=== PATIENT | female | born 1990 | race Caucasian/White ===

== ENCOUNTER 2017-04-29 21:37 | Inpatient (IN) | payer OTHER ==
[~2017-04-29] VITALS: Ht 157.5 cm; Wt 96.2 kg
[~2017-04-29 21:37] MED LIST: Ginko Biloba; Tylenol; prenatal vitamins
--- NOTE | 2017-04-29 23:40 | HP ---
[address] [address] HISTORY AND PHYSICAL PATIENT: AMIE REBOLLEDO : 1990 MR#: [id number] ADMIT: 04/29/2017 JOB ID: [id number] CHIEF COMPLAINT: Contractions and decreased movement. HISTORY OF PRESENTING ILLNESS: This is a 26 years old 5, para , presented at 39 weeks and 0 days gestation with expected date of delivery of May 06, 2017, by last menstrual period, consistent with 18 week ultrasound. The patient presented with complaint of decreased movement and contractions. Contractions are getting stronger and with increasing pelvic pressure. Cervical exam found to be 4 cm and 90% effaced. Last cervical exam was 3-5 cm and 40% effaced a few days ago. complicated with one previous history of section. Desires trial of labor after section. The patient was counseled and consented by Dr. Gibbons at the office on April 17, 2017. Consent paper is not available at this time. History of mild intermittent asthma, using inhaler p.r.n. History of an anemia. Rh negative. RhoGAM was given on January 20, 2017. Obesity. Fundal height more than dates. Estimated weight by ultrasound on April 18, 2017, is 3160 g, at 43rd percentile. GYNECOLOGIC HISTORY: Menarche at age 11. Regular menstrual cycles every 28 days. Last menstrual period July 30, 2017. Was not on control at time of conception. OBSTETRICAL HISTORY: In had a spontaneous at 6 weeks gestation, was a complete with no medical or surgical intervention. In 2009, had a term delivery at 39 weeks and 0 days. Delivered a female infant, 7 pounds 15 ounces, via spontaneous vaginal delivery under epidural anesthesia. Length of labor 18 hours. In 2011, had a spontaneous at 8 weeks and 0 days. Was a spontaneous complete with no medical or surgical intervention. In 2012, had a term delivery at 40 weeks and 6 days via a primary section for failure to progress and nonreassuring heart rate. PAST MEDICAL HISTORY: Asthma anemia. Bipolar 1. PAST SURGICAL HISTORY: Previous one section, tonsillectomy, ear surgery. MEDICATIONS: vitamins. SOCIAL HISTORY: Denies smoking, alcohol, or illicit drug abuse. FAMILY HISTORY: Father alive and well. Mother alive and well. Son with autism. Maternal grandmother with hypertension. REVIEW OF SYSTEMS: A 10-point review of systems negative except for the items in the history of presenting illness. PHYSICAL EXAMINATION: Vital signs: Blood pressure 135/70, heart rate 96, respiratory rate 18, temperature 36.4. heart tones baseline 135, moderate variability, positive accelerations, no decelerations. Pabellones contractions every 5 minutes. General: Alert, oriented to time, place and person. Head: Normocephalic, atraumatic. Neck: Supple. Chest: Equal air entry bilaterally. No added sounds. Cardiovascular: Regular rate and rhythm. S1 plus S2. Abdomen: Gravid. No tenderness. Cervical exam: Cervix is 4 cm, 80%, -3 at 22:00. LABORATORIES: Blood type is A negative. Rubella immune. Varicella immune. RPR nonreactive. Hepatitis B surface antigen negative. HIV negative. Antibody screening negative December 02, 2016. Chlamydia and gonorrhea screening is negative on December 24, 2016. Hemoglobin 11.9 on December 02, 2016. Diabetes screening within normal limits, 106. Group B strep negative on April 14, 2017. Ultrasound on December 11, 2016, normal anatomy and posterior placenta. ASSESSMENT: This is a 5, para 2-0-2-2, presented at 39 weeks and 0 days gestation with active labor and decreased movement. heart tones at category 1. Previous history of one section preceded by spontaneous vaginal delivery. Desires trial of labor after section. The patient was counseled and consented earlier at the office on April 17, 2017. Today, patient was counseled again about risks, benefits and alternatives of repeat section versus trial of labor after section. The calculated success rate is 66%. Risk of uterine rupture was reviewed with the patient. Risk of section after failed trial of labor after section was also reviewed with the patient. The patient desires trial of labor after section. Informed consent was signed again today. Will admit with orders and labs. The patient may be considering epidural for pain management in labor.
[2017-04-29] MEDS ORDERED: Lactated Ringer's 1,000 ML IV PRN (23:44)
[2017-04-29] MEDS ORDERED: fentaNYL-PF 50 mCg/mL 2 mL Inj IVPUSH PRN (23:45)
[2017-04-29] MEDS ORDERED: Sodium Chloride LOK Flush 10 mL Syringe IVFLUSH PRN (23:45)
[2017-04-29] MEDS ORDERED: Carboprost 250 mCg/mL Inj IM PRN (23:45)
[2017-04-29] MEDS ORDERED: Hemorrhage Kit, Post Partum XX ONE (23:45)
[2017-04-29] MEDS ORDERED: Oxytocin 10 Unit/mL Inj IM PRN (23:45)
[2017-04-29] MEDS ORDERED: Methylergonovine 0.2 mg/mL Inj IM PRN (23:45)
[2017-04-29] MEDS ORDERED: Oxytocin 30 Units/500 mL LR 30 UNITS in IV Premix 1 EACH IV PRN (23:45)
[2017-04-30] MEDS ORDERED: SERT20OR6 PO (00:01)
[2017-04-30] MEDS ORDERED: LORA10CA9 PO (00:01)
[2017-04-30] MEDS ORDERED: ONDA-54 PO (00:01)
[2017-04-30 00:04] LABS: Mean Corpuscular Hemoglobin 31.3 pg (27.0-35.0); Mean Corpuscular Volume 90.9 fL (81-100)
[2017-04-30] MEDS: Ondansetron 2 mg/mL 2 mL Inj IVPUSH PRN ×2 (02:14→13:49)
--- NOTE | 2017-04-30 07:27 | PCM.PNOBIP ---
Subjective Date of Service Apr 30, 2017 Delivery plan: Vaginal Delivery after Ceserean Visit History This is a 26 years old 5, para 2021, presented at 39 weeks and 0 days gestation with expected date of delivery of May 06, 2017, by last menstrual period, consistent with 18 week ultrasound. The patient presented with complaint of decreased movement and contractions. Contractions are getting stronger and with increasing pelvic pressure. Cervical exam found to be 4 cm and 90% effaced. The patient was counseled and consented by Dr. Gibbons at the office on April 17, 2017. Subjective The patient is resting comfortably at this time. She states she has nausea but has not vomited. She has not eaten in 13 hours but she would like to eat. She having contractions every 7-8 minutes. She has not felt any drainage or leakage at this time. Pain Management: PO pain meds Gastrointestinal: Complains of Nausea Activity: Ambulating Independently Group B Strep Results: Negative Rubella: Immune Blood Type: A RH Type: Negative Labs Laboratory Tests 04/29/17 23:58: White Blood Count 9.3, Red Blood Count 3.83, Hemoglobin 12.0, Hematocrit 34.8, Mean Corpuscular Volume 90.9, Mean Corpuscular Hemoglobin 31.3, Mean Corpuscular Hemoglobin Concent 34.5, Red Cell Distribution Width 13.0, Platelet Count 210 Exam Vital Signs Vital Signs Contraction frequency in minutes: 7-8 Maternal BP 110/80 Pulse 82 RR 18 temp 37.2 Heart rate baseline 140 Moderate variability single deceleration captured Cat II Heart Tracings Heart Tones Baseline 140 bpm Heart Rate Variability: Moderate Heart Rate Accelleration: Present Heart Rate Deceleration: Other (single deceleration captured) Heart Rate Category: II Tocometry/IUPC Contraction frequency in minutes: MVUs: Sterile Vaginal Exam Cervical Dilation: 5 cms Cervical Effacement: 80 % Station: -3 Exam Abdomen: Fundus firm, Abdomen soft, Abdomen non-tender Extremities: No cords, Edema 1+ Heart: Exam Unremarkable, Regular Rate/Rhythm General: Alert, Oriented X3, Cooperative, No Acute Distress Additional Information No clonus DTR 2/4 OB Intrapartum Assessment/Plan Assessment TOLAC Problems: (1) Previous delivery affecting Status: Acute ICD Code: O34.219 (2) Active labor at term Plan: - Continue intrapartum care - FHT overall reassuring at this time. Continue to monitor. - Zofran 4 mg for nausea PRN Status: Acute Intrapartum plan: Continue expected management Pain Evaluation: Adequate Pain Control Attending Statement The patient was seen and examined together with Dr. Chadd Mike on 04/30/2017 and I agree with the history, exam and plan as outlined in the note above. Shanae Mike DO Apr 30, 2017 07:27 Miriam Guzman MD Apr 30, 2017 17:03
[2017-04-30] MEDS ORDERED: Lactated Ringer's 1,000 ML IV SCH ×3 (12:21→16:53)
--- NOTE | 2017-04-30 12:21 | PCM.PNOBIP ---
Subjective Date of Service Apr 30, 2017 Delivery plan: Vaginal Delivery after Ceserean Visit History This is a 26 years old 5, para 2021, presented at 39 weeks and 0 days gestation with expected date of delivery of May 06, 2017, by last menstrual period, consistent with 18 week ultrasound. The patient presented with complaint of decreased movement and contractions. Cervical exam found to be 4 cm and 90% effaced. Subjective Patient resting comfortably in bed. She reports contractions are stronger. No leakage of fluid. Pain Management: PO pain meds Gastrointestinal: Complains of Nausea Activity: Ambulating Independently Group B Strep Results: Negative Rubella: Immune Blood Type: A RH Type: Negative Labs Laboratory Tests 04/29/17 23:58: White Blood Count 9.3, Red Blood Count 3.83, Hemoglobin 12.0, Hematocrit 34.8, Mean Corpuscular Volume 90.9, Mean Corpuscular Hemoglobin 31.3, Mean Corpuscular Hemoglobin Concent 34.5, Red Cell Distribution Width 13.0, Platelet Count 210 Exam Vital Signs Vital Signs Contraction frequency in minutes: every 10 to 12 minutes apart Vital Signs: VS reviewed, stable (119/78 P 97) Heart Tracings Heart Tones Baseline 130 bpm Heart Rate Variability: Moderate Heart Rate Accelleration: Present Heart Rate Category: I Sterile Vaginal Exam Cervical Dilation: 5 cms Cervical Effacement: 50 % Station: -3 Exam General: Alert, Oriented X3, Cooperative, No Acute Distress OB Intrapartum Assessment/Plan Problems: (1) Previous delivery affecting Plan: Trial of labor Status: Acute ICD Code: O34.219 (2) Active labor at term Plan: Discussed with patient option of AROM and placement of IUPC to help monitor progress and actively manage labor. She declined AROM. Plan to start pitocin augmentation at this time. Continue to monitor. Status: Acute Intrapartum plan: Continue expected management, Start pitocin Pain Evaluation: Adequate Pain Control Miriam Guzman MD Apr 30, 2017 12:21
[2017-04-30] MEDS ORDERED: Oxytocin 30 Units/500 mL LR 30 UNITS in IV Premix 1 EACH IV PRN ×2 (12:25→16:55)
[2017-04-30] MEDS ORDERED: diphenhydrAMINE 50 mg Capsule PO PRN (12:25)
[2017-04-30] MEDS ORDERED: Lactated Ringer's 500 ML IV ONE (14:19)
[2017-04-30] MEDS ORDERED: Atropine 1 mg/10 mL (Code) Syringe IVPUSH PRN (14:20)
[2017-04-30] MEDS ORDERED: EPHEDrine Sulfate 50 mg/mL Inj IVPUSH PRN (14:20)
[2017-04-30] MEDS ORDERED: Ondansetron 2 mg/mL 2 mL Inj IVPUSH PRN (14:20)
[2017-04-30] MEDS ORDERED: fentaNYL 2 mCg/mL-Bupiv 0.125% 100 ML EPIDURAL SCH (14:20)
--- NOTE | 2017-04-30 14:20 | PCM.HPANE ---
Patient Data Surgeon Admitting Provider:Latoya Vargas MD Attending Provider:Latoya Vargas MD Primary Care Physician:Harini Dias MD Other Provider: Reason for Visit Term Labor Check TERM LABOR CHECK Ht/WT & BMI Body Mass Index Allergies Coded Allergies: kiwi (Verified Allergy, Unknown, RASH,ANAPHYLAXIS, 11/04/12) latex (Verified Allergy, Unknown, hives, 04/30/17) Past Anesthesia History Anesthesia History: Denies:: Abnormal Airway, Difficult Intubation Diabetes History Hx Diabetes?: No MRSA MRSA: No Medications Hypertension Medication: No Home Meds Incl Beta Mariajose: No Reported Medications Loratadine 10 Mg [id number] Mg PO DAILY 04/30/17 Ondansetron 8 Mg Tablet8 Mg PO DAILY NAUSEA 04/30/17 Sertraline HCl (Sertraline)20 Mg/1 Ml Oral.conc25 Mg PO DAILY #1 BOTTLE Ref 0 04/30/17 [Tylenol] No Conflict Check Prn 11/04/12 [ vitamins] No Conflict Check Daily 11/04/12 Discontinued Reported Medications [Ginko Biloba] No Conflict Check Daily 11/04/12 History History of ENT Problems?: No HEENT History: Denies:: Abnormal Airway Cataracts Difficult Intubation Dysphagia Glaucoma Hearing Problem Sinus Problem TMJ Denture Type: None Teeth Condition: Within Normal Limits Hx of Heart Problems?: No Cardiovascular History: Denies:: AICD Abdominal Aortic Aneurism Atrial Fibrillation Cardiac Surgery Chest Pain Congestive Heart Failure Coronary Artery Disease Edema Heart Murmur Hypertension Irregular Heartbeat Pacemaker Peripheral Vascular Rheumatic Fever Thrombophlebitis Valvular Heart Disease Hx of Respiratory Problem?: No Respiratory History: Denies:: Asthma COPD Chest Surgery Cough Dyspnea Emphysema Hemoptysis Oxygen Administration Pneumonia Pulmonary Embolism Tuberculosis Use of C-PAP Machine Use of Inhalers / NEBS Hx Neurologic Problems?: No Neurological History: Denies:: Alzheimer's Disease CVA Dementia Dizziness Headaches Multiple Sclerosis Parkinson's Disease Peripheral Neuropathy Seizures TIA Hx of GI Problems?: No Hx of Problems?: No HX of Peritoneal Dialysis: No Female Hx: Positive for:: Currently Hx Musculoskeletal Problems?: No Hx Surgeries?: No Hx Any Other Health Problems?: No Hx Diabetes: No Hx Alcohol Use: NoHx Substance Use: No Smoking Status: Never Smoker Have You Smoked inLast 12 mo: No Stop/Bang Treated for Sleep Apnea?: No Do You Have a CPAP Machine?: No IGNACIO Risk Assessment: Low Risk, <3 Yes Risk Assessment Category Category 1A: Patient has history of documented sleep apnea, and HAS NOT received any narcotic, sedative or anesthesia administration during this stay. Category 1B: Patient has history of documented sleep apnea, and HAS received any narcotic , sedative or anesthesia administration during this stay Category 2: Patient has SUSPECTED Obstructive Sleep Apnea, and HAS received any narcotic , sedative or anesthesia administration during this stay. Category 3: Patient has SUSPECTED Obstructive Sleep Apnea and HAS NOT received narcotic, sedative or anesthesia administration during this stay. Category 4: Outpatient in Procedural Areas with known sleep apnea or who screen positive for High Risk via the STOP/BANG questionnaire. Exam Exam General Appearance: Alert, Oriented X3, Cooperative, No Acute Distress, Mild Distress HEENT/AIRWAY: MP 2 Lungs: Clear to Auscultation, Normal Air Movement Heart: Exam Unremarkable, Regular Rate/Rhythm, No Murmurs/Rubs/Gallops Meds/Labs/Diagnostics Labs Test 04/29/17 23:58 White Blood Count 9.3th/mm3 (3.8-10.1) Red Blood Count 3.83mil/mm3 (3.90-5.20) Hemoglobin 12.0g/dL (12.0-15.6) Hematocrit 34.8% (35.0-46.0) Mean Corpuscular Volume 90.9fL (81-100) Mean Corpuscular Hemoglobin 31.3pg (27.0-35.0) Mean Corpuscular Hemoglobin Concent 34.5% (32.0-37.0) Red Cell Distribution Width 13.0% (12.3-15.4) Platelet Count 210bil/L (150-400) Plan Impression Patient chart reviewed, patient interviewed and anesthestic plan with risks, benefits, and alternatives discussed, and informed consent obtained. NPO per Anesth. Guidelines: Yes ASA Physical Status: ASA1 Normal Healthy Anesthetic Plan: Epidural Bene/Risks/Altern/Consents: Yes HP Complete Prior to Induction: Yes Alfred Merino MD Apr 30, 2017 14:20
[2017-04-30] MEDS ORDERED: Sodium Chloride LOK Flush 10 mL Syringe IVFLUSH SCH (16:30)
--- NOTE | 2017-04-30 16:52 | PCM.OBVAG ---
Vaginal Delivery Date of Service Apr 30, 2017 Pre Operative Diagnosis Pre Operative Diagnosis This is a 26 years old 5, para 2021, presented at 39 weeks and 0 days gestation with expected date of delivery of May 06, 2017, by last menstrual period, consistent with 18 week ultrasound. The patient presented with complaint of decreased movement and contractions. Cervical exam found to be 4 cm and 90% effaced. Post Operative Diagnosis Post Operative Diagnosis 39 week gestation Previous Delivery Successful Procedure Procedure: Successful Mobile Phone Salesperson/Deck Molder Provider and Deck Molder: Miriam Guzman MD Indication for Procedure Indication for Procedure This is a 26 years old 5, para 2021, presented at 39 weeks and 0 days gestation with expected date of delivery of May 06, 2017, by last menstrual period, consistent with 18 week ultrasound. The patient presented with complaint of decreased movement and contractions. Cervical exam found to be 4 cm and 90% effaced. Induction: Active labor, SROM, Progressed normally through labor Findings Obstetrical Findings: [place] (Female), Cord (3 Vessel), Weight ( unavailable at time of delivery due to skin to skin bonding), Presentation (OA) , 1 minute (6), 5 minutes (8), Placenta (Intact/Normal), Perineal Laceration (Second degree right labial laceration) Analgesia/Medications Obstetrical Anesthesia: Epidural Procedure Details Procedure Details This is a 26 years old 5, para 2021, presented at 39 weeks and 0 days gestation with expected date of delivery of May 06, 2017, by last menstrual period, consistent with 18 week ultrasound. The patient presented with complaint of decreased movement and contractions. Cervical exam found to be 4 cm and 90% effaced. She progressed through labor with pitocin augmentation and was 10cm dilated at 15:54 hours. She delivered a female in an OA vertex presentation at 16:09. The placenta was delivered intact with a 3-vessel cord at 16:17hrs. On insepection of the vagina, cervix and perineum there was a small second degree right labial laceration that divided the superior portion of the labia. This was repaired in a subcuticular fashion with 4-0 monocryl suture. Good hemostasis was assured. Sponge and needle counts were correct x 2. IV Intake/Output Catheters: None Blood Loss & Administration Estimated Blood Loss: 300 Blood Admin during procedure: No Post Procedure Plan Post delivery Condition: Mom stable Miriam Guzman MD Apr 30, 2017 16:52
[2017-04-30] MEDS ORDERED: Oxytocin 10 Unit/mL Inj IM PRN (16:55)
[2017-04-30] MEDS ORDERED: LANOlin HPA 7 Gm Ointment TOPICAL PRN (16:55)
[2017-04-30] MEDS ORDERED: Hemorrhage Kit, Post Partum XX ONE (16:55)
[2017-04-30] MEDS ORDERED: Methylergonovine 0.2 mg/mL Inj IM PRN (16:55)
[2017-04-30] MEDS ORDERED: Carboprost 250 mCg/mL Inj IM PRN (16:55)
[2017-04-30] MEDS ORDERED: Benzocaine (Dermoplast) 20% 60 Gm Spray TOPICAL PRN (16:55)
[2017-04-30] MEDS ORDERED: Witch Hazel-Glycerin Pads TOPICAL PRN (16:55)
[2017-04-30] MEDS: Ascorbic Acid 500 mg Tablet PO SCH (19:39)
[2017-05-01 07:13] LABS: Mean Corpuscular Hemoglobin 31.1 pg (27.0-35.0); Mean Corpuscular Volume 92.7 fL (81-100)
--- NOTE | 2017-05-01 07:45 | PCM.ANEP1 ---
Post Anesthesia PACU Phase 1 Assessment Anesthetic Administered: Epidural Level of Alertness: Awake, talking SNIDER's with Equal Strength: Yes Pain: No Pain Scale Score: 0 Nausea or Vomiting: No CV Function & Hydration Stable: Yes Airway Device: natural Oxygen Delivery: Room Air Lungs: Clear to Auscultation, Normal Air Movement Dermatome Level: Full Sensation PACU Phase 2 Assessment Complications: No Follow up Care: No Patient Instructions Provided: N/A Alfred Merino MD May 01, 2017 07:45
--- NOTE | 2017-05-01 07:48 | PCM.PNOBPP ---
Subjective Date of Service May 01, 2017 Post : Vaginal Delivery after Ceserean Visit History This is a 26 years old 5, now para 3023, presented at 39 weeks and 0 days gestation with expected date of delivery of May 06, 2017, by last menstrual period, consistent with 18 week ultrasound. The patient presented with complaint of decreased movement and contractions. Contractions are getting stronger and with increasing pelvic pressure. Cervical exam found to be 4 cm and 90% effaced. The patient delivered vaginally at 16:09 April 30, 2017. Subjective Patient states she is doing well. She does feel wheezy but she correlates this with the air-conditioning. She has a rescue inhaler with her that she does not use. Baby is eating well as her breast milk has come in. She is up walking around the room but gets lightheaded when she stands up too fast. Lochia: Light Pain Management: PO pain meds Gastrointestinal: Good Appetite, No N/V, Passing Flatus Postop Activity: Ambulating Independently Group B Strep Results: Negative Rubella: Immune Blood Type: A RH Type: Negative Labs Laboratory Tests 04/29/17 23:58: White Blood Count 9.3, Red Blood Count 3.83, Hemoglobin 12.0, Hematocrit 34.8, Mean Corpuscular Volume 90.9, Mean Corpuscular Hemoglobin 31.3, Mean Corpuscular Hemoglobin Concent 34.5, Red Cell Distribution Width 13.0, Platelet Count 210 Exam Vital Signs Vital Signs 110/55 pulse 97 rr 16 temp 36.4 Vital Signs: VS reviewed, stable Exam Abdomen: Fundus firm Extremities: No cords, No tenderness/swelling, No edema Lungs: Clear to Auscultation Heart: Exam Unremarkable General: Alert, Oriented X3 OB Post Assessment/Plan Problems: (1) Previous delivery affecting Status: Resolved ICD Code: O34.219 (2) Active labor at term Status: Resolved (3) , delivered Status: Acute ICD Code: O34.219 Pain Evaluation: Adequate Pain Control Post plan: Continue routine post care Plan: - Continue routine post care - Evaluate H&H when resulted - Discharge home in the afternoon if her lightheadedness resolves and H&H if within normal limits Shanae Mike DO May 01, 2017 06:48
[2017-05-01] MEDS: Ascorbic Acid 500 mg Tablet PO SCH (10:13)
--- NOTE | 2017-05-01 13:40 | PCM.DC.OB ---
Obstetrical Discharge Summary Date of Service May 01, 2017 Date of hospital admission Apr 29, 2017 at 22:28 Date of Discharge: May 01, 2017 Providers Admitting Physician: Latoya Vargas MD Primary Care Physician: Harini Dias MD Attending Physician: Latoya Vargas MD Problems: (1) Previous delivery affecting Status: Resolved ICD Code: O34.219 (2) Active labor at term Status: Resolved (3) , delivered Status: Resolved ICD Code: O34.219 Brief History and Physical: This is a 26 years old 5, now para 3023, presented at 39 weeks and 0 days gestation with expected date of delivery of May 06, 2017, by last menstrual period, consistent with 18 week ultrasound. The patient presented with complaint of decreased movement and contractions. Contractions are getting stronger and with increasing pelvic pressure. Cervical exam found to be 4 cm and 90% effaced. The patient delivered vaginally at 16:09 April 30, 2017. Abdomen: Fundus firm Extremities: No cords, No tenderness/swelling, No edema Lungs: Clear to Auscultation Heart: Exam Unremarkable General: Alert, Oriented X3 Hospital Course: 26 year old G5 now P3 presented at 39 weeks and 0 days gestation with complaint of decreased movement and contractions. Contractions are getting stronger and with increasing pelvic pressure. Patient desired a trial of labor following section. The patient was counseled and consented by Dr. Gibbons at the office on April 17, 2017. Patient was feeling to progress after 12 hours. The option of AROM and placement of IUPC was discussed with the patient to help monitor progress and manage labor. She declined AROM. Pitocin augmentation was started and the patient's cervix reached 10 cm dilation at 15:54 hours. She delivered a female in an OA vertex presentation at 16:09. The placenta was delivered intact with a 3- vessel cord at 16:17hrs. there was a small second degree right labial laceration that divided the superior portion of the labia. This was sutured with good hemostasis. scores were 6 and 8 respectively. and mother are both in satisfactory condition and ready for discharge home. ([ vitamins]) DAILY (Reported) ([Tylenol]) PRN (Reported) Docusate Sodium (Colace) 100 Mg Capsule 100 MG PO BID Prescribed by: SHANAE MIKE DO Ibuprofen (Ibuprofen) 800 Mg Tablet 800 MG PO Q6H PRN PRN For Pain Prescribed by: SHANAE MIKE DO Loratadine (Loratadine) 10 Mg Capsule 10 MG PO DAILY (Reported) Last Taken: Unknown Dose on 04/29/17 Ondansetron (Ondansetron) 8 Mg Tablet 8 MG PO DAILY (Reported) Sertraline HCl (Sertraline) 20 Mg/1 Ml Oral.conc 25 MG PO DAILY (Reported) Last Taken: Unknown Dose on 04/28/171999 Discontinued Medications ([Ginko Biloba]) DAILY (Reported) Discharge Medications: Ibuprofen 800 mg every 6 when necessary Disposition Home Follow-up plan Follow-up appointment with women's health clinic in 6 weeks Discharge Diet: No restrictions Discharge Activity-General: No restrictions, Pelvic Rest for 6 weeks, Try not to overdue, Balance rest and activity, Activity as pain allows, Activity as energy allows, No lifting >15 pounds for 2 weeks Attending Statement: The patient was seen and examined together with Dr.Brook Mike on 05/01/2017 and I agree with the history, exam and plan as outlined in the note above. Shanae Mike DO May 01, 2017 13:40 Miriam Guzman MD May 06, 2017 07:55
--- NOTE | 2017-05-01 13:46 | PCM.DIOB ---
Obstetrical Disch Instruction Date of Service: May 01, 2017 Dates of Hospitalization Date of Hospital Admission Apr 29, 2017 at 22:28 Providers Admitting Physician: Latoya Vargas MD Primary Care Physician: Harini Dias MD Attending Physician: Latoya Vargas MD Discharge Diagnosis Discharge Diagnosis Vaginal delivery after section Problems: (1) Previous delivery affecting Status: Resolved ICD Code: O34.219 (2) Active labor at term Status: Resolved (3) , delivered Status: Resolved ICD Code: O34.219 Diet Discharge Diet: No restrictions Activity Discharge Activity-General: No restrictions, Pelvic Rest for 6 weeks, Try not to overdue, Be up and about, Balance rest and activity, Activity as pain allows , Activity as energy allows, No lifting >15 pounds for 2 weeks Dressing and Incisional Care Hygiene: May shower, NO bathtub, hot tub or whirlpool (for 2 weeks), Sitz bath Additional Instructions Discharge Instructions Take ibuprofen 800 mg every 6 hours with acetaminophen 500 mg every 6 hours, stated these medications for best effect. Be sure to follow up in 2 weeks and then again in 6 weeks at [facility]. Pelvic rest for 6 weeks (nothing per vagina including intercourse, tampons) If you have a fever greater than 100.4, please call [facility]. There is always someone online content editor to talk to. If you have an increase in bleeding, call [facility]. If you have a lot of bleeding suddenly, especially if you have symptoms of dizziness & weakness with it, get emergency help. When you see [facility] in two weeks, you will be informed of the results of all the labs. If you start experiencing extreme depression, especially if you feel that you are a danger to yourself or your family, seek emergency help. You have been through a lot -- BE SURE TO TAKE CARE OF YOURSELF. Follow Up Plan Follow Up Plan 6 weeks women's health clinic Call your provider for: Fever or Chills, Shortness of breath, Heavy vaginal bleeding, Heavy bleeding, Epigastric pain, Excessive constipation, Vaginal discomfort, Red painful breasts Shanae Mike DO May 01, 2017 13:45
[2017-05-01] MEDS ORDERED: DOCU-41 PO (13:47)
[2017-05-01] MEDS ORDERED: IBUP800T28 PO (13:47)
== END 2017-05-01 17:30 | disposition home or self-care (01) | DRG 775 ==
LOC: FBCO 21:37 → FBC 22:28
PROVIDERS: ADMIT Obstetrics & Gynecology; ATTEND Obstetrics & Gynecology
PROC: 10E0XZZ Delivery of Products of Conception, External Approach (ICD-10-PCS; principal; 2017-04-30)
PROC: 0KQM0ZZ Repair Perineum Muscle, Open Approach (ICD-10-PCS; 2017-04-30)
PROC: 10H07YZ Insertion of Other Device into Products of Conception, Via Natural or Artificial Opening (ICD-10-PCS; 2017-04-30)
DX: O70.1 Second degree perineal laceration during delivery (principal); Z37.0 Single live birth; O34.211 Maternal care for low transverse scar from previous cesarean delivery; Z3A.39 39 weeks gestation of pregnancy